=== PATIENT | male | born 1985 | race Hispanic/Latino ===

== ENCOUNTER 2017-11-02 12:14 | Day surgery (SDC) | payer SELFPAY ==
--- NOTE | 2017-11-02 13:22 | CT ---
ORBITS CT: Date: 11/02/17 HISTORY: Possible foreign body in right eye. COMPARISON: None. TECHNIQUE: Orbits CT is performed without contrast. Reformatted images are submitted for interpretation. FINDINGS: There is adequate aeration of the visualized paranasal sinuses and mastoid air cells. Visualized brain parenchyma is unremarkable. Visualized nasopharynx is patent. With regard to the left orbit, ocular lens is appropriately located. Left globe is intact. Retrobulba r fat is preserved. Appropriate attenuation of the optic nerves and ocular rectus muscles. With regard to the right orbit, there appears to be a punctate metallic density which may be in the s clerae or in the anterior aspect of the globe. This punctate foreign body measures approximately 4.0 mm. The right ocular lens appears to be appropriately located. Retrobulbar fat is preserved. Appropri ate attenuation of the optic nerve and ocular rectus muscles. IMPRESSION: Metallic/radiopaque foreign body involving the right orbit as detailed above. This foreign body appea rs to be centered in the anterior aspect of the right globe. Results of study discussed with Dr. Reyes on 11/02/17 at 1311 hours. CODE CR. POS: [facility]
[2017-11-02] MEDS ORDERED: Vancomycin HCl 100 MG, Sodium Chloride 0.9% 10 ML TOP SCH ×2 (14:15)
[2017-11-02] MEDS ORDERED: Amphotericin B(Fungizone) 0.75 MG in Sterile Water 10 ML IVPB SCH (14:15)
[2017-11-02] MEDS ORDERED: Phenylephrine 2.5% Ophth Soln 5 ML BOT ONE (14:54)
[2017-11-02] MEDS ORDERED: Cyclopentolate 1% Opth Drop 2 ML BOT ONE (14:54)
[2017-11-02] MEDS ORDERED: Fentanyl 100 MCG/2 ML VIAL ONE (15:40)
[2017-11-02] MEDS ORDERED: Midazolam HCl 2 mg/2 ml Vial ONE (15:40)
[2017-11-02] MEDS ORDERED: Adacel (T-DAP) 0.5 ML VIAL IM ONE (19:30)
--- NOTE | 2017-11-03 00:09 | OP ---
DATE OF PROCEDURE: 11/02/2017 PREOPERATIVE DIAGNOSIS: Intraocular foreign body, right eye. POSTOPERATIVE DIAGNOSIS: Intraocular foreign body, right eye. PROCEDURE: Pars plana vitrectomy, lensectomy, intraocular foreign body removal. SURGEON: Curtis Alvarado M.D. ANESTHESIA: General endotracheal anesthesia. PROCEDURE IN DETAIL: The patient was identified in the preoperative holding area. Appropriate infor med consent for the planned surgical procedure on the right eye had been obtained. The patient was t ransported to the operative suite where appropriate cardiopulmonary monitoring was established. The patient was prepped and draped in the usual sterile manner for ophthalmic surgery on the right eye. Lid speculum was placed in the right eye. The nasal entry wound was noted. Expulsed iris was carefu lly dissected away and the remaining iris reposited into the eye. The corneal wound was closed with 10-0 nylon sutures and the defect was noted and there had been previously identified intraocular fore ign body on CT scan. Trocars were placed supratemporally, inferotemporally, and supranasally after w cole out of the anterior chamber. A core vitrectomy was performed and an intraocular foreign body met allic intraocular foreign body was noted on the temporal aspect in the vitreous. Posterior hyaloid f kilo was elevated and the lens was removed using a vitreous cutter. A supratemporal scleral wound was created superior and in preparation for removal of the foreign body. Intraocular foreign body force ps were inserted into the eye from the nasal aspect. Foreign body was grasped and then delivered thr ough the superotemporal wound. Supratemporal wound was closed with 7-0 Vicryl suture and all residua l sclerotomies were suture closed. Vancomycin, Fortaz and amphotericin B were injected into the vitr eous cavity and a Retrobulbar Kenalog was placed. Eye was patched and shielded. The patient was izzy kened and taken to the postoperative recovery unit in good condition having suffered no immediate per ioperative complications. DISCHARGE INSTRUCTIONS: The patient was instructed to keep patch and shield on, avoid lifting or latoya ding, and follow up in the morning with Dr. Alvarado.
== END 2017-11-02 19:07 | disposition home or self-care (01) ==
LOC: ERS 12:14 → SDC 14:25 → ERS 14:25 → SDC 19:07 → ERS 19:52 → SDC 11-03 11:42
PROVIDERS: ATTEND Ophthalmology Retina Specialist
PROC: 08C Eye, Extirpation (ICD-10-PCS; principal; 2017-11-02)
DX: S05.51XA Penetrating wound with foreign body of right eyeball, initial encounter (principal)
CPT/HCPCS: 70480; 90715; 96372; A4216; J0285; J0713; J2250; J3010; J3370

== ENCOUNTER 2018-05-17 10:20 | Day surgery (SDC) | payer OTHER ==
[2018-05-16 12:56] VITALS: BMI 31.1
[~2018-05-17 10:20] MED LIST: Cyclopentolate 1% Opth Drop 2 ML BOT FS SCH; Phenylephrine 2.5% Ophth Soln 5 ML BOT FS SCH
[2018-05-17] MEDS ORDERED: Cyclopentolate 1% Opth Drop 2 ML BOT ONE (10:47)
[2018-05-17] MEDS ORDERED: Phenylephrine 2.5% Ophth Soln 5 ML BOT ONE (10:47)
[2018-05-17] MEDS ORDERED: Midazolam HCl 2 mg/2 ml Vial ONE (11:19)
[2018-05-17] MEDS ORDERED: Fentanyl 100 MCG/2 ML VIAL ONE ×2 (11:19→12:41)
[2018-05-17] MEDS ORDERED: Triamcinolone 40 MG/ML VIAL ONE (14:51)
[2018-05-17] MEDS ORDERED: Lidocaine 1% PF 5 ML VIAL ONE ×2 (14:51)
[2018-05-17] MEDS ORDERED: Maxitrol 0.1% Opth Oint 3.5 GM TUBE ONE (14:51)
[2018-05-17] MEDS ORDERED: Lidocaine 4% PF 5 ML AMP ONE (14:51)
[2018-05-17] MEDS ORDERED: Ketorolac Tromethamine 30 MG/ML VIAL ONE (14:51)
[2018-05-17] MEDS ORDERED: PROPOFOL 200 MG/20 ML VIAL ONE (14:51)
[2018-05-17] MEDS ORDERED: Ondansetron HCl/PF 4 MG/2 ML Vial ONE (14:51)
[2018-05-17] MEDS ORDERED: Bupivacaine 0.75% 10 ML AMP ONE (14:51)
[2018-05-17] MEDS ORDERED: Glycopyrrolate 0.2 MG/ML 5 ML SYRINGE ONE (14:51)
[2018-05-17] MEDS ORDERED: CEFAZOLIN 1 GM VIAL ONE (14:51)
[2018-05-17] MEDS ORDERED: Promethazine HCl 25 MG/ML VIAL ONE (14:52)
--- NOTE | 2018-05-17 16:00 | OP ---
DATE OF PROCEDURE: 05/17/2018 PREOPERATIVE DIAGNOSIS: Aphakia, right eye. POSTOPERATIVE DIAGNOSIS: Aphakia, right eye. PROCEDURE: Secondary intraocular lens, right eye. SURGEON: Curtis Alvarado M.D. ANESTHESIA: General endotracheal anesthesia. COMPLICATIONS: None. PROCEDURE IN DETAIL: The patient was identified in the preoperative holding area. Appropriate infor med consent for the planned surgical procedure on the right eye had been obtained. The patient was t ransported to the operative suite. Appropriate cardiopulmonary monitoring was established. General endotracheal anesthesia was initiated. Local anesthesia obtained using retrobulbar block. The patie nt was prepped and draped in the usual sterile manner for ophthalmic surgery on the right eye. Lid s peculum was placed in the right eye. The 25-gauge gauge trocar was placed inferotemporally. Scleral tunnel incision was created superior temporally and a Tecnis [id number], 21.0 diopter intraocular lens w as inserted into the anterior chamber, then relocalized into the ciliary sulcus with haptics external ized using the technique. The ends were flanged using low temperature cautery and reposited in to the sclera. Superior scleral tunnel was sutured closed with two 10-0 nylon sutures. Conjunctiva was closed with 6-0 plain gut suture. Retrobulbar Kenalog and subconjunctival Ancef were placed. An tibiotic ointment placed and the eye was patched and shielded. The patient was taken to the postoper ative recovery unit in good condition having suffered no immediate perioperative complications. DISCHARGE INSTRUCTIONS: The patient was instructed to keep patch and shield on, avoid lifting or latoya ding and follow up in the morning with Dr. Alvarado.
== END 2018-05-17 16:17 | disposition home or self-care (01) ==
LOC: SDC 10:20
PROVIDERS: ATTEND Ophthalmology Retina Specialist
PROC: 08RJ3JZ Replacement of Right Lens with Synthetic Substitute, Percutaneous Approach (ICD-10-PCS; principal; 2018-05-17)
DX: H27.01 Aphakia, right eye (principal)
CPT/HCPCS: 96374; C1780; J0690; J1885; J2001; J2250; J2405; J2550; J2704; J3010; J3301; J3490